=== PATIENT | male | born 1965 | race Caucasian/White ===

== ENCOUNTER 2018-02-06 06:47 | Day surgery (SDC) | payer BC ==
[2018-02-06] MEDS ORDERED: MIDAZOLAM 1 MG/ML 2 ML INJ ×2 (09:07)
[2018-02-06] MEDS ORDERED: FENTAnyl 50 MCG/ML VIAL (09:07)
== END 2018-02-06 10:23 | disposition home or self-care (01) ==
LOC: GIL 06:47
DX: Z12.11 Encounter for screening for malignant neoplasm of colon (principal); K64.8 Other hemorrhoids; I10 Essential (primary) hypertension; E78.5 Hyperlipidemia, unspecified
CPT/HCPCS: 45378